=== PATIENT | female | born 2000 | race Caucasian/White ===

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

== ENCOUNTER → 2019-10-08 | Outpatient (CLI) | payer BC ==
--- NOTE | 2019-10-09 13:26 | US ---
EXAMINATION TYPE: US thyroid st tissue head/neck DATE OF EXAM: 10/08/2019 COMPARISON: NONE CLINICAL HISTORY: E04.1 Thyroid nodule. GLAND SIZE: Right Lobe: 4.6 x 0.9 x 1.2 cm Overall Parenchyma: homogenous Left Lobe: 4.6 x 0.9 x 1.3 cm Overall Parenchyma: homogeneous Isthmus Thickness: 0.2 cm NODULES RIGHT: # of nodules measured on right: 0 LEFT: # of nodules measured on left: 0 ISTHMUS: # of nodules measured in the isthmus: 0 Bilateral neck scanned, no evidence of lymphadenopathy. Subcentimeter cyst noted on right posteriorly at the inferior margin likely colloid cyst. Thyroid echotexture is homogenous and symmetric. IMPRESSION: Probable subcentimeter colloid cyst as described
== END | disposition home or self-care (01) ==
LOC: RADUSWWP 16:07
PROVIDERS: ATTEND Nurse Practitioner Family
DX: E04.1 Nontoxic single thyroid nodule (principal)
CPT/HCPCS: 76536

== ENCOUNTER → 2020-05-03 | Outpatient (CLI) | payer BC ==
[2020-05-03 19:00] LABS: T4, Free (Free Thyroxine) 1.1 ng/dL (0.83-1.43)
== END | disposition home or self-care (01) ==
LOC: LABWHC1 08:24
PROVIDERS: ATTEND Otolaryngology
DX: E04.1 Nontoxic single thyroid nodule (principal); R53.83 Other fatigue
CPT/HCPCS: 36415; 84439; 84443; 86376